=== PATIENT | female | born 1935 | race Caucasian/White ===

== ENCOUNTER 2017-08-19 14:32 | Emergency (ER) | payer OTHER, BC ==
--- NOTE | 2017-08-19 15:38 | EDPHY ---
HPI/HX/ROS/PE/MDM Narrative: CHIEF COMPLAINT: Right eye pain, shortness of breath HPI: [place] 81 [place] a history of COPD, hypothyroidism, and hypertension complaining of right eye pain. She was sitting outside a few days ago when she felt something fly into her right eye. She thinks it may have been dirt. Initially, she was asymptomatic but this morning her eye began to hurt and gray. She has had yellow discharge from the eye. In addition, she developed shortness of breath a few hours ago. She has an associated sore throat. She denies fever or any other associated symptoms. She was seen by urgent care who directed her here. She denies history of diabetes or cardiac issues. REVIEW OF SYSTEMS: Aside from elements discussed in the HPI, a comprehensive 10-point review of systems was reviewed and is negative. PMH: COPD, hypothyroidism, hypertension, hypotension SOCIAL HISTORY: [place], daughter at bedside, retired PHYSICAL EXAM: General:Patient is alert, in no acute distress. Head: normocephalic, atraumatic. ENT: Right eye: Diffuse erythema with mild yellow discharge. Pharyngeal erythema but no exudate. Neck: Normal inspection. Full range of motion. Respiratory:No respiratory distress. Breath sounds normal bilaterally. Cardiovascular: Regular rate and rhythm. Strong peripheral pulses. Normal cap refill. Back: Normal to inspection. No tenderness to palpation. Skin: Normal color. No rash. Warm and dry. Extremities: Normal appearance. Full range of motion. Neuro: Oriented x3. Normal motor function. Normal sensory function. ED Course: Study: X-ray of the chest Indication: shortness of breath Results: X-ray of the chest was obtained. The results of the study are: negative for acute processes The study was read by the radiologist, Dr. Mckeon. I viewed the images myself on the PACS system. Slit lamp exam: After fluorescein dye instilled - no signs of corneal abrasion , uptake or streaming. Diffuse erythema. Pupil round and reactive. Significant purulent discharge. MDM: This patient presents primarily with right eye redness and discharge, but also mentioned some incidental shortness of breath, which [place] attribute [place] Her CXR is negative, flu swab is negative, and other labs are unremarkable as well. Her eye exam seems very consistent with conjunctivitis, but she endorses possible FB so slit lamp exam was done, which thankfully reveals no sign of corneal abrasion or trauma. Given sore mild sore throat and eye symptoms, I think this is likely a viral process, most likely enterovirus, which is very prevalent at this time. I considered glaucoma , but lack of eye pain, vision changes and presence of purulence makes this unlikely. Patient is not hypoxic and there are no signs of pneumonia. - Data Points Imaging Results: Imaging Impressions Chest X-Ray 08/19/17 15:34 Impression: Diffuse interstitial opacities which may represent some underlying interstitial lung disease. Mild wall thickening of the central airways. Laboratory Results: Laboratory Results 08/19/17 15:45 08/19/17 15:45 08/19/17 08/19/17 08/19/17 15:45 15:45 15:45 WBC 10.54 10^3/uL H 10^3/uL (3.80-9.50) RBC 4.62 10^6/uL 10^6/uL (4.18-5.33) Hgb 14.4 g/dL g/dL (12.6-16.3) Hct 41.3 % % (38.0-47.0) MCV 89.4 fL fL (81.5-99.8) MCH 31.2 pg pg (27.9-34.1) MCHC 34.9 g/dL g/dL (32.4-36.7) RDW 13.1 % % (11.5-15.2) Plt Count 322 10^3/uL 10^3/uL (150-400) MPV 9.1 fL fL (8.7-11.7) Neut % (Auto) 70.4 % % (39.3-74.2) Lymph % (Auto) 15.3 % % (15.0-45.0) Osborne % (Auto) 9.5 % % (4.5-13.0) Eos % (Auto) 3.9 % % (0.6-7.6) Baso % (Auto) 0.6 % % (0.3-1.7) Nucleat RBC Rel Count 0.0 % % (0.0-0.2) Absolute Neuts (auto) 7.43 10^3/uL H 10^3/uL (1.70-6.50) Absolute Lymphs (auto) 1.61 10^3/uL 10^3/uL (1.00-3.00) Absolute Monos (auto) 1.00 10^3/uL H 10^3/uL (0.30-0.80) Absolute Eos (auto) 0.41 10^3/uL H 10^3/uL (0.03-0.40) Absolute Basos (auto) 0.06 10^3/uL 10^3/uL (0.02-0.10) Absolute Nucleated RBC 0.00 10^3/uL 10^3/uL (0-0.01) Immature Gran % 0.3 % % (0.0-1.1) Immature Gran # 0.03 10^3/uL 10^3/uL (0.00-0.10) Sodium 138 mEq/L mEq/L (134-144) Potassium 3.8 mEq/L mEq/L (3.5-5.2) Chloride 100 mEq/L mEq/L (97-110) Carbon Dioxide 26 mEq/l mEq/l (22-31) Anion Gap 12 mEq/L mEq/L (8-16) BUN 13 mg/dL mg/dL (7-23) Creatinine 0.8 mg/dL mg/dL (0.6-1.0) Estimated GFR > 60 Glucose 80 mg/dL mg/dL (70-100) Calcium 9.7 mg/dL mg/dL (8.5-10.4) NT-Pro-B Natriuret Pep 377 pg/mL pg/mL (0-450) Nasal Influenza A PCR NEGATIVE FOR FLU A (NEGATIVE) Nasal Influenza B PCR NEGATIVE FOR FLU B (NEGATIVE) General Time Seen by Provider: 08/19/17 15:25 Initial Vital Signs: Initial Vital Signs Temperature (C) 36.4 C 08/19/17 14:33 Heart Rate 89 08/19/17 14:33 Respiratory Rate 18 08/19/17 14:33 Blood Pressure 138/94 H 08/19/17 14:33 O2 Sat (%) 94 08/19/17 14:33 O2 Delivery Mode Room Air Allergies/Adverse Reactions: Sulfa (Sulfonamide Antibiotics) Allergy (Verified 08/19/17 14:39) Home Medications: Medication Instructions Recorded Albuterol [Ventolin Hfa Inhaler] 200 puffs IH 08/19/17 Budesonide/Formoterol 160/4.5 1 puffs IH BID 08/19/17 [Symbicort 160-4.5 Mcg Inh (*)] Levothyroxine [Synthroid 100 mcg 100 mcg PO DAILY06 08/19/17 (*)] Mirabegron [Myrbetriq] 25 mg PO 08/19/17 Prexastatin 08/19/17 Tiotropium Inhaler [Spiriva 1 inh IH 08/19/17 Inhaler] Venlafaxine Xr [Effexor Xr 75MG 75 mg PO 08/19/17 (*)] amLODIPine BESYLATE [Norvasc 5 mg 5 mg PO DAILY 08/19/17 (*)] traZODone [traZODONE 100MG (*)] 100 mg PO 08/19/17 Departure - Departure Disposition: Home, Routine, Self-Care Clinical Impression: Viral syndrome, Conjunctivitis Condition: Good Instructions: Viral Syndrome (ED), Conjunctivitis (ED) Additional Instructions: Use antibiotic drops in right eye every 3 hours while awake for 5 days. Return to the ED for fever, shortness of breath, worsening eye symptoms, headache, or other concerns. Referrals: SHISHU,UNKNOWN [Other] - As per Instructions Report Scribed for: Jimmy Garay Report Scribed by: Blanquita Hackett Date of Report: 08/19/17 Time of Report: 15:26 Physician Review and Approval Statement: Portions of this note were transcribed by an ED scribe. I personally performed the history, physical exam, and medical decision making; and confirm the accuracy of the information in the transcribed note.
[2017-08-19 16:00] LABS: % IMMATURE GRANULYOCYTES 0.3 % (0.0-1.1); ABSOLUTE IMMATURE GRANULOCYTES 0.03 10^3/uL (0.00-0.10); ADD DIFF? NO; ADD MORPH? NO; ADD SCAN? NO; ATYPICAL LYMPHOCYTE FLAG 10 (0-99); FRAGMENT RBC FLAG 0 (0-99); HEMATOCRIT 41.3 % (38.0-47.0); HEMOGLOBIN 14.4 g/dL (12.6-16.3); LEFT SHIFT FLG 0 (0-99); LIPEMIA HEMOLYSIS FLAG 90 (0-99); MEAN CELL HEMOGLOBIN 31.2 pg (27.9-34.1); MEAN CELL HEMOGLOBIN CONCENTR. 34.9 g/dL (32.4-36.7); MEAN CELL VOLUME 89.4 fL (81.5-99.8); MEAN PLATELET VOLUME 9.1 fL (8.7-11.7); PLATELET CLUMPS FLAG 10 (0-99); PLATELET COUNT 322 10^3/uL (150-400); RED BLOOD CELL COUNT 4.62 10^6/uL (4.18-5.33); RED CELL DISTRIBUTION WIDTH 13.1 % (11.5-15.2)
[2017-08-19 16:13] LABS: ANION GAP 12 mEq/L (8-16); CALCIUM 9.7 mg/dL (8.5-10.4); CARBON DIOXIDE 26 mEq/l (22-31); CHLORIDE 100 mEq/L (97-110); CREATININE 0.8 mg/dL (0.6-1.0); GLOMERULAR FILTRATION RATE > 60; GLUCOSE 80 mg/dL (70-100); POTASSIUM 3.8 mEq/L (3.5-5.2); SODIUM 138 mEq/L (134-144)
[2017-08-19] MEDS ORDERED: PROPARACAINE 0.5% 15 ML OPHT DROP ONE (17:05)
[2017-08-19] MEDS ORDERED: FLUORESCEIN SODIUM 1 MG STRIP OP ONE (17:05)
[2017-08-19] MEDS ORDERED: OFLOXACIN 0.3% SOLN PREPACK OPHT.BTL TAKEHOME ONE (17:20)
[2017-08-19 17:56] VITALS: BP 157/116; PULSE 100; RESP 16; TEMP 98.1; O2SAT 93
== END 2017-08-19 17:53 | disposition home or self-care (01) ==
DX: B34.9 Viral infection, unspecified (principal); H10.9 Unspecified conjunctivitis; J44.9 Chronic obstructive pulmonary disease, unspecified; I10 Essential (primary) hypertension